=== PATIENT | male | born 1995 | race Caucasian/White ===

== ENCOUNTER 2024-11-12 17:05 | Emergency (ER) | payer OTHER, SELFPAY ==
--- NOTE | 2024-11-12 17:09 | ED.LOWEXIN ---
HPI - Extremity Injury (Lower) General Chief Complaint: Extremity Injury, Lower Stated Complaint: KNEE PAIN Time Seen by Provider: 11/12/24 17:21 Source: patient and RN notes reviewed Mode of arrival: ambulatory Limitations: no limitations History of Present Illness HPI Narrative: 29-year-old male presents with concern for left knee pain. He reports 2 weeks ago he was working outside in the ice and the snow and he slipped several times. He denies any acute pain at that time but shortly after that began having knee pain. Reports little to no pain with rest, worsening pain with weight-bearing and extension. He has occasionally taken ibuprofen. MD complaint: other (knee pain) Related Data Home Medications ?Medication ?Instructions ?Recorded ?Confirmed ?Last Taken ?Type No Home Medications 11/12/24 11/12/24 Unknown History Allergies Allergy/AdvReac Type Severity Reaction Status Date / Time No Known Allergies Allergy Verified 11/12/24 17:18 Review of Systems Review of Systems: CONSTITUTIONAL: Denies malaise, chills, sweats, or fever. SKIN: Denies rash or itching, open skin, laceration, abrasion, redness, warmth MUSCULOSKELETAL: Reports left knee pain and swelling NEUROLOGIC: Denies numbness, weakness All systems reviewed & are unremarkable except as noted in HPI and below PMFSH Comments At time of signature, agree with nursing past medical, surgical, social and family history. There is no relevant family history pertinent to the presenting complaint Exam Narrative: GENERAL: Well-appearing, well-nourished, and in no acute distress. HEAD: Normocephalic, atraumatic. EYES: PERRLA, conjunctivae clear NECK: Supple. CHEST: Speaks in full sentences. No respiratory distress. HEART: Regular rate and rhythm. Normal and equal peripheral pulses. EXTREMITIES: Left knee has grossly normal strength and sensation, grossly normal range of motion. Palpable anterior lateral effusion without erythema, warmth, ecchymosis. 5/5 strength with knee flexion and extension. Normal sensation with sensitivity to light touch and pain. Anterior lateral tenderness. No open wounds, no skin tenting, no devitalized tissue or atrophy, no trophic changes, no obvious deformity, alignment normal, nearby joints and structures intact. Distal pulses palpable and equal bilaterally, skin warm, dry, pink. Capillary refill less than 3 seconds. SKIN: Warm, dry, no rash. NEURO: Alert and oriented x3. PSYCH: Normal mood and affect Course Course Emergency Course: Patient is aware of diagnosis, understands and agrees to treatment plan. Anticipatory guidance given. Patient agrees to follow-up as directed and is aware of reasons to seek care at the emergency department. Portions of this record may have been created with voice recognition software Level of Care: Express Care Visit Vital Signs Vital signs: Reviewed. MDM - Extremity Injury (Lower) MDM Narrative Medical decision making narrative: Patients injury and pain is consistent with musculoskeletal etiology. No signs of neurological or vascular compromise on exam. Compartments and tissues are soft without signs of compartment syndrome. Pain is felt appropriate for further evaluation on an outpatient basis. Critical Care Time Critical Care Time Critical Care Time: No Discharge Plan Discharge Clinical Impression: Effusion of knee joint, left Patient Disposition: Home, Self-Care Condition: Stable Instructions: Swollen Knee Joint (ED) Additional Instructions: Avoid activities that cause pain until the pain subsides. Ice to the area 20-30 minutes 4-6 times a day Elevate above heart Elastic wrap as directed for comfort for the next 5-7 days Tylenol for lesser pain Ibuprofen regularly for the next 2-3 days for the inflammation Follow up with your primary care provider if the condition is not improving within 1 week. If the condition worsens with numbness, tingling, decrease sensation with weakness seek treatment in the emergency room immediately. Patient Language: Mosotho Prescriptions: No Action No Home Medications Follow-up/Referrals: Jarod Thomas MD [Physician] - UNKNOWN,DOCTOR [Non-Staff] - Time of Disposition: 17:31
[2024-11-12 17:15] VITALS: BP 154/106; PULSE 89; RESP 18; TEMP 37.1; O2SAT 98
== END 2024-11-12 17:35 | disposition home or self-care (01) ==
PROVIDERS: Emergency Provider Nurse Practitioner
DX: M25.462 Effusion, left knee (principal)
CPT/HCPCS: 99211; G0463

== ENCOUNTER 2024-11-13 14:33 | Outpatient (CLI) | payer OTHER, SELFPAY | END 2024-11-13 14:34 | disposition home or self-care (01) | PROVIDERS: PCP Family Medicine; Visit Provider Family Medicine | DX: M25.462 Effusion, left knee (principal) | CPT/HCPCS: 73564 ==